=== PATIENT | female | born 1975 | race African-American/Black ===

== ENCOUNTER 2016-09-13 20:09 | Emergency (ER) | payer BC ==
--- NOTE | ~2016-09-13 | CR230 ---
[facility]. [facility] A Service of [facility] & [facility] / [facility] RADIOLOGY TEXT RESULTS PATIENT: FLAQUITO WATSON LOCATION: SED : 71 UNIT #: [id number] AGE: [address]: Maude Ott SEX: F ORDER DR: [id number] [place] [id number] E MR#: [id number] Acc #: [id number] NAME: FLAQUITO WATSON : 1975 SEX: F STUDY DATE/TIME: 09/13/2016 20:00 UNIT: SED ROOM: STUDY DESCRIPTION: CR Shoulder Min 2 View Rt Attending Physician: Maude Ott P.A.-C. Ordering Physician: Maude Ott P.A.-C. Primary Care Physician: Tonja Flores M.D. MEDICAL IMAGING REPORT This report is preliminary unless electronic signature is present. EXAM Right shoulder. HISTORY Injured shoulder tripping over dog tonight. FINDINGS 3 views of the right shoulder demonstrates mild AC joint arthropathy. No fracture or dislocation. Soft tissues visualized right thorax appear normal. IMPRESSION Mild AC joint arthropathy. No acute findings. Dictated by... Noe Duran M.D. THIS IS AN ELECTRONICALLY VERIFIED REPORT Noe Duran M.D. at 09/14/2016 1:08 PM CATHY/richie TD: 09/13/2016 22:50 JOB #: [id number] MEDICAL IMAGING REPORT Page 1 of 1
--- NOTE | ~2016-09-13 | CR21 ---
[facility] A Service of [facility] & [facility] / [facility] RADIOLOGY TEXT RESULTS PATIENT: FLAQUITO WATSON LOCATION: SED : 71 UNIT #: [id number] AGE: [address]: Maude Ott SEX: F ORDER DR: [id number] [place] [id number] E MR#: [id number] Acc #: [id number] NAME: FLAQUITO WATSON : 1975 SEX: F STUDY DATE/TIME: 09/13/2016 20:00 UNIT: SED ROOM: STUDY DESCRIPTION: CR Ankle Min 3 Views Rt Attending Physician: Maude Ott P.A.-C. Ordering Physician: Maude Ott P.A.-C. Primary Care Physician: Tonja Flores M.D. MEDICAL IMAGING REPORT This report is preliminary unless electronic signature is present. EXAM Right ankle 3 views. HISTORY Rolled ankle tripping over dog tonight. FINDINGS 3 views of the right ankle demonstrates a well corticated ossicle off the distal fibula may represent sequelae of old trauma. No acute fracture noted. Ankle mortise appears intact. The talus subtalar joint appears normal. Mild medial ankle soft tissue swelling. IMPRESSION Minimal soft tissue swelling about the ankle with a well corticated ossicle off the distal fibula but no acute fracture or dislocation. Dictated by... Noe Duran M.D. THIS IS AN ELECTRONICALLY VERIFIED REPORT Noe Duran M.D. at 09/14/2016 1:07 PM CATHY/richie TD: 09/13/2016 22:51 JOB #: [id number] MEDICAL IMAGING REPORT Page 1 of 1
--- NOTE | ~2016-09-13 | CR127 ---
[facility] A Service of [facility] & [facility] / [facility] RADIOLOGY TEXT RESULTS PATIENT: FLAQUITO WATSON LOCATION: SED : 71 UNIT #: [id number] AGE: [address]: Madue Ott SEX: F ORDER DR: [id number] [place] [id number] E MR#: [id number] Acc #: [id number] NAME: FLAQUITO WATSON : 1975 SEX: F STUDY DATE/TIME: 09/13/2016 20:00 UNIT: SED ROOM: STUDY DESCRIPTION: CR Foot Complete Min 3 View Rt Attending Physician: Maude Ott P.A.-C. Ordering Physician: Maude Ott P.A.-C. Primary Care Physician: Tonja Flores M.D. MEDICAL IMAGING REPORT This report is preliminary unless electronic signature is present. EXAM Right foot, 3 views HISTORY Rolled right ankle tripping over dog. FINDINGS 3 views of the right foot demonstrates no fracture dislocation. No arthritic or inflammatory change. Soft tissues unremarkable. IMPRESSION Negative right foot. Dictated by... Noe Duran M.D. THIS IS AN ELECTRONICALLY VERIFIED REPORT Noe Duran M.D. at 09/14/2016 1:08 PM CATHY/amarilis TD: 09/13/2016 23:01 JOB #: [id number] MEDICAL IMAGING REPORT Page 1 of 1
[~2016-09-13 20:09] MED LIST: MULTIVITAMINS1 EAC3; NEXIUM PO; TRIAMCINOLONE AC1 GM; VITAMIN D400 UNI2
== END 2016-09-13 21:00 | disposition home or self-care (01) ==
LOC: SED 20:09
DX: S91.011A Laceration without foreign body, right ankle, initial encounter (principal); S41.011A Laceration without foreign body of right shoulder, initial encounter; K21.9 Gastro-esophageal reflux disease without esophagitis; Z79.899 Other long term (current) drug therapy; W10.9XXA Fall (on) (from) unspecified stairs and steps, initial encounter; Y92.009 Unspecified place in unspecified non-institutional (private) residence as the place of occurrence of the external cause
CPT/HCPCS: 29515; 73030; 73610; 73630; 99284

== ENCOUNTER 2016-12-28 08:25 | Emergency (ER) | payer BC ==
--- NOTE | ~2016-12-28 | CR21 ---
[facility]. [facility] A Service of [facility] & [facility] / [facility] RADIOLOGY TEXT RESULTS PATIENT: FLAQUITO WATSON LOCATION: SED : 71 UNIT #: [id number] AGE: [address]: Issa Zapata MD SEX: F ORDER DR: [id number] [place] [id number] E MR#: [id number] Acc #: [id number] NAME: FLAQUITO WATSON : 1975 SEX: F STUDY DATE/TIME: 12/28/2016 08:59 UNIT: SED ROOM: STUDY DESCRIPTION: CR Ankle Min 3 Views Rt Attending Physician: Issa Zapata M.D. Ordering Physician: Issa Zapata M.D. Primary Care Physician: Tonja Flores M.D. MEDICAL IMAGING REPORT This report is preliminary unless electronic signature is present. EXAM Right ankle 3 views, 12/28/2016 08:59 hours HISTORY Patient fell out of shower yesterday hitting back on toilet. Ankle pain since fall. COMPARISON 09/13/2016 FINDINGS AP, lateral and oblique views demonstrate stable well corticated ossicle adjacent to the distal fibula. There is no fracture or dislocation. IMPRESSION No acute fracture or dislocation. There is a stable well corticated ossicle adjacent to the distal fibula unchanged from 09/13/2016. No fracture. Dictated by... Marisol Simon M.D. THIS IS AN ELECTRONICALLY VERIFIED REPORT Marisol Simon M.D. at 12/28/2016 4:29 PM Nat TD: 12/28/2016 10:01 JOB #: [id number] MEDICAL IMAGING REPORT Page 1 of 1
--- NOTE | ~2016-12-28 | CR243 ---
[facility]. [facility] A Service of [facility] RADIOLOGY TEXT RESULTS PATIENT: FLAQUITO WATSON LOCATION: SED : [birth year] UNIT #: [id number] AGE: [address]: Issa Zapata MD SEX: F ORDER DR: [id number] [place] [id number] E MR#: [id number] Acc #: [id number] NAME: FLAQUITO WATSON : 1975 SEX: F STUDY DATE/TIME: UNIT: SED ROOM: STUDY DESCRIPTION: CR Thoracic Spine 3 Views Attending Physician: Issa Zapata M.D. Ordering Physician: Issa Zapata M.D. Primary Care Physician: Tonja Flores M.D. MEDICAL IMAGING REPORT This report is preliminary unless electronic signature is present. EXAM Thoracic spine series 12/28/2016 0859 hours CLINICAL HISTORY Patient fell out of shower yesterday striking back on toilet. Back pain since yesterday. COMPARISON Chest film 06/21/2007. FINDINGS AP, lateral views of the thoracic spine and a lateral swimmers view were performed. The overall alignment is normal. There is mild vertebral body height loss at T8 and T9. Findings at T8 have progressed slightly since 2007 and mild wedging at T9 is new from 2007 but of indeterminate age. These changes could be acute. IMPRESSION There is wedging at T8 and T9. Wedging at T8 has progressed from 06/21/2007 although the vertebral body was not normal on that remote chest x-ray. The wedging at T9 is new from 2007. These findings could be acute or chronic as I do not have a more recent study. No paraspinous hematoma is seen. There is no malalignment. Dictated by... Marisol Simon M.D. THIS IS AN ELECTRONICALLY VERIFIED REPORT Marisol Simon M.D. at 12/28/2016 4:29 PM KERA/ivonne [facility] A Service of [facility] RADIOLOGY TEXT RESULTS PATIENT: FLAQUITO WATSON LOCATION: SED : [birth year] UNIT #: [id number] AGE: [address]: Issa Zapata MD SEX: F ORDER DR: TD: 12/28/2016 10:49 JOB #: [id number] MEDICAL IMAGING REPORT Page 1 of 1
== END 2016-12-28 10:05 | disposition home or self-care (01) ==
LOC: SED 08:25
DX: S93.401A Sprain of unspecified ligament of right ankle, initial encounter (principal); S20.229A Contusion of unspecified back wall of thorax, initial encounter; W18.30XA Fall on same level, unspecified, initial encounter; Y92.002 Bathroom of unspecified non-institutional (private) residence as the place of occurrence of the external cause
CPT/HCPCS: 72072; 73610; 99283